=== PATIENT | male | born 1980 | race Caucasian/White ===

== ENCOUNTER → 2018-05-26 | Outpatient (CLI) | payer BC ==
[~2018-05-26] MED LIST: METHACHOLINE KIT (J7674) INH
== END ==
LOC: M CARPUL 13:45
DX: R06.02 Shortness of breath (principal)
CPT/HCPCS: J7674

== ENCOUNTER → 2022-08-01 | Outpatient (REF) | payer BC, OTHER | LOC: M LAB REF 16:42 | PROVIDERS: ATTEND Otolaryngology | DX: J31.2 Chronic pharyngitis (principal) ==

== ENCOUNTER → 2024-05-03 | Outpatient (CLI) | payer OTHER | LOC: M RAD 07:11 | PROVIDERS: ATTEND Physician Assistant | DX: R91.8 Other nonspecific abnormal finding of lung field (principal); R06.00 Dyspnea, unspecified; Z65.5 Exposure to disaster, war and other hostilities ==

== ENCOUNTER → 2024-11-17 | Outpatient (REF) | LOC: M PLAIMG 08:21 | PROVIDERS: ATTEND Internal Medicine | DX: R06.02 Shortness of breath (principal) ==

== ENCOUNTER → 2025-08-04 | Outpatient (CLI) | payer OTHER | LOC: M PLAIMG 06:53 | PROVIDERS: ATTEND Physician Assistant | DX: R91.8 Other nonspecific abnormal finding of lung field (principal) ==